=== PATIENT | male | born 1950 | race Caucasian/White ===

== ENCOUNTER → 2019-09-10 | Outpatient (CLI) | payer MEDICARE ==
--- NOTE | 2019-09-10 16:42 | XR ---
Cervical spine HISTORY: Neck pain 5 views of the cervical spine There is anterolisthesis grade 1 C4-5. Multilevel spondylosis is present. Loss of disc height present especially at C5-6, C6-7 and C7-T1. Cervical vertebral bodies show preserved height. There is multil evel facet arthropathy. Apical scarring calcifications present within the distribution of the carotid arteries. C3-4, C5-6 and C6-C7, C7-T1 foraminal encroachment on the left, foraminal encroachment on the right present at C4-5, C6-7. There is a spinal curvature. IMPRESSION: Degenerative disc disease and facet arthropathy. Additional findings above.
== END | disposition home or self-care (01) ==
LOC: RADXRMAIN 14:03
PROVIDERS: ATTEND Internal Medicine
DX: M50.30 Other cervical disc degeneration, unspecified cervical region (principal); M43.12 Spondylolisthesis, cervical region; M47.812 Spondylosis without myelopathy or radiculopathy, cervical region; M46.92 Unspecified inflammatory spondylopathy, cervical region
CPT/HCPCS: 72050

== ENCOUNTER → 2021-04-08 | Outpatient (CLI) | payer MEDICARE ==
--- NOTE | 2021-04-08 14:00 | NM ---
EXAMINATION TYPE: NM stress cardiolite complete DATE OF EXAM: 04/08/2021 COMPARISON: NONE HISTORY: I20.8 stable angina pectoris TECHNIQUE: After the intravenous administration of 9.6 mCi Tc 99m Sestamibi - Rest images obtained 4 5 minutes post injection. The patient exercised using a JAYSON protocol and 1 minute prior to peak e xercise was injected with 25.2 mCi Tc 99m Sestamibi - Stress images obtained 10 minutes post injectio n. FINDINGS: Targeted heart rate was achieved during performance of the study. Review of stress and rest SPECT kacie ges demonstrates some mild decreased along the anteroseptal left ventricle on stress as compared to r est images more towards the base of the heart. Gated analysis shows normal wall motion with an estim ated left ventricular ejection fraction of 71 %. IMPRESSION: Findings suggest stress-induced left ventricular myocardial ischemia, consider echocardiographic angel elation for elevated ejection fraction A Yellow level critical message alert has been initiated for Duke Soto MD via the [employer] Critical Results System on 04/08/2021 1:57 PM. This message alert has been sent to Duke Soto MD via the preferences provided by the clinician for the receipt of Radiology Critical Findings. Message ID [id number].
--- NOTE | 2021-04-08 14:13 | EST ---
EXERCISE STRESS AGE: 70 SEX: M HT: 6' WT: 180 lbs PROTOCOL: Cardiolite STAGE: 4 DURATION OF EXERCISE: 10:00 HEART RATE REST: 58 BLOOD PRESSURE REST: 120/70 MAXIMUM HEART RATE ACHIEVED: 142 MAXIMUM BLOOD PRESSURE: 181/65 85% MPHR: 126 100% MPHR: 148 METS: 11.7 INDICATIONS: Abnormal ECG CLINICAL INFORMATION: Baseline EKG revealed a sinus mechanism with minor nonspecific ST-T abnormality. Patient walked on standard Sean protocol for 10 minutes, achieved a maximal heart rate of 142 beats per minute, which is more than 85% of predicted maximum. He developed fatigue and shortness of breath but did not have angina or arrhythmia. EKG did not reveal any ST-segment changes to indicate ischemia. There was a lot of baseline artifact but no clear-cut evidence of ischemia. Good exercise capacity with a negative stress test by EKG criteria was noted. No anginal symptoms were reported and no significant arrhythmia was noted. The nuclear scan results, which are more pertinent, will be reported by the radiologist. SUNITA / NIKN: [id number] /
== END | disposition home or self-care (01) ==
LOC: RADNMMAIN 08:07
PROVIDERS: ATTEND Internal Medicine
DX: R94.39 Abnormal result of other cardiovascular function study (principal)
CPT/HCPCS: 93017; 78452; A9500

== ENCOUNTER → 2021-04-28 | Outpatient (CLI) | payer MEDICARE ==
--- NOTE | 2021-04-29 12:01 | ECHOF ---
Referral Reason:R94.38 Posivite stress test MEASUREMENTS -------- HEIGHT: 182.9 cm WEIGHT: 83.0 kg BP: 134/64 RVIDd: 2.9 cm (< 3.3) IVSd: 1.2 cm (0.6 - 1.1) LVIDd: 3.8 cm (3.9 - 5.3) LVPWd: 1.1 cm (0.6 - 1.1) IVSs: 1.4 cm LVIDs: 2.4 cm LVPWs: 1.4 cm LA Diam: 4.2 cm (2.7 - 3.8) LAESV Index (A-L): 32.08 ml/m Ao Diam: 3.5 cm (2.0 - 3.7) AV Cusp: 2.6 cm (1.5 - 2.6) MV EXCURSION: 19.848 mm (> 18.000) MV EF SLOPE: 107 mm/s (70 - 150) EPSS: 0.7 cm MV E Jean Paul: 0.71 m/s MV DecT: 355 ms MV A Jean Paul: 0.80 m/s MV E/A Ratio: 0.88 RAP: 5.00 mmHg RVSP: 23.73 mmHg FINDINGS -------- Sinus rhythm. This was a technically good study. The left ventricular size is normal. There is borderline concentric left ventricular hypertrophy. Overall left ventricular systolic function is normal with, an EF between 60 - 65 %. The right ventricle is normal in size. LA is midly dilated 29-33ml/m2. The right atrium is normal in size. Interatrial and interventricular septum intact. The aortic valve is trileaflet, and appears structurally normal. No aortic stenosis or regurgitation. The mitral valve is normal. Mild tricuspid regurgitation present. Right ventricular systolic pressure is normal at < 35 mmHg. There is no pulmonic regurgitation present. The aortic root size is normal. Normal inferior vena cava with normal inspiratory collapse consistent with estimated right atrial pre ssure of 5 mmHg. There is no pericardial effusion. CONCLUSIONS -------- 1. The left ventricular size is normal. 2. There is borderline concentric left ventricular hypertrophy. 3. Overall left ventricular systolic function is normal with, an EF between 60 - 65 %. 4. LA is midly dilated 29-33ml/m2. 5. The aortic valve is trileaflet, and appears structurally normal. No aortic stenosis or regurgitati on. 6. Mild tricuspid regurgitation present. 7. There is no pericardial effusion. [employer] AIDE: Tegan Fletcher RDCS
== END | disposition home or self-care (01) ==
LOC: RADECHMAIN 15:24
PROVIDERS: ATTEND Internal Medicine
DX: I07.1 Rheumatic tricuspid insufficiency (principal)
CPT/HCPCS: 93306

== ENCOUNTER → 2024-08-12 | Outpatient (CLI) | payer MEDICARE ==
--- NOTE | 2024-08-12 23:54 | US ---
EXAMINATION TYPE: US carotid duplex BILAT DATE OF EXAM: 08/12/2024 COMPARISON: NONE CLINICAL INDICATION: Male, 73 years old with history of I65.23 CAROTID STENOSIS; stenosis Additional History: .... TECHNIQUE: Grayscale, color Doppler and spectral Doppler evaluation of the bilateral carotid systems and vertebral arteries. Indirect Doppler criteria was utilized. FINDINGS: EXAM MEASUREMENTS: RIGHT: Peak Systolic Velocity (PSV) cm/sec ----- Right CCA: 92.4 ----- Right ICA: 85.2 ----- Right ECA: 75 ICA/CCA ratio: 0.9 RIGHT: End Diastole cm/sec ----- Right CCA: 22.7 ----- Right ICA: 21.2 ----- Right ECA: 12.5 LEFT: Peak Systolic Velocity (PSV) cm/sec ----- Left CCA: 76.4 ----- Left ICA: 80.8 ----- Left ECA: 93.9 ICA/CCA ratio: 1.1 LEFT: End Diastole cm/sec ----- Left CCA: 21.2 ----- Left ICA: 27 ----- Left ECA: 14 VERTEBRALS (direction of flow): Right Vertebral: Antegrade Left Vertebral: Antegrade Rhythm: Normal ISOTOPE TECHNOLOGIST NOTES: No significant stenosis seen Color Doppler imaging shows patency with blood flow throughout the carotid artery. Spectral waveforms are within normal limits. IMPRESSION: 1. Scattered atheromatous plaques with some mild intimal thickening present bilaterally. No significa nt flow-limiting stenosis based on velocities. Criteria for Assigning % of Stenosis / Diameter reduction (Estimation based on the indirect measurements of the internal carotid artery velocities (ICA PSV). 1. Normal (no stenosis)=ICA PSV < 125 cm/s: ratio < 2.0: ICA EDV<40 cm/s. 2. Less than 50% stenosis=ICA PSV < 125 cm/s: ratio < 2.0: ICA EDV<40 cm/s. 3. 50 to 69% stenosis=ICA PSV of 125 to 230 cm/s: ration 2.0 ? 4.0: ICA EDV 40-100 cm/s. 4. Greater than 70% stenosis to near occlusion= ICA PSV > 230 cm/s: ratio > 4.0: ICA EDV > 100 cm/s. 5. Near occlusion= ICA PSV velocities may be low or undetectable: variable ratio and ICA EDV. 6. Total occlusion=unable to detect flow. [facility], , 08/12/2024 11:51 PM
--- NOTE | 2024-08-13 07:58 | CA ---
Transthoracic Echo Report Name: Feliciano Neumann Age: 73 Gender: M : 1950 Exam Date: 08/12/2024 13:29 Exam Location: [facility] Ht (in): 71 Wt (lb): 185 Ordering Physician: Duke Soto MD Attending/Referring Phys: Duke Soto MD Call Specialist Radha Bagley RDCS Procedure CPT: Indications: I25.10 ATHSCL HEART DISEASE OF [place] CORONARY ART Cardiac Hx: Technical Quality: Good Contrast 1: Total Dose (mL): Contrast 2: Total Dose (mL): MEASUREMENTS (Male / Female) Normal Values 2D ECHO LV Diastolic Diameter PLAX 5.5 cm 4.2 - 5.9 / 3.9 - 5.3 cm LV Systolic Diameter PLAX 3.4 cm IVS Diastolic Thickness 0.8 cm 0.6 - 1.0 / 0.6 - 0.9 cm LVPW Diastolic Thickness 0.8 cm 0.6 - 1.0 / 0.6 - 0.9 cm LV Relative Wall Thickness 0.3 LVOT Diameter 2.5 cm Aortic Root Diameter 3.4 cm LV Diastolic Volume MOD BP 139.5 cm??? 67 - 155 / 56 - 104 cm??? LV Systolic Volume MOD BP 63.0 cm??? 22 - 58 / 19 - 49 cm??? LV Ejection Fraction MOD BP 54.8 % >= 55 % LV Cardiac Index MOD BP 2152.2 cm???/min???m??? LV Diastolic Volume MOD 4C 132.0 cm??? LV Systolic Volume MOD 4C 61.1 cm??? LV Ejection Fraction MOD 4C 53.7 % LV Cardiac Index MOD 4C 1996.3 cm???/min???m??? LV Diastolic Length 4C 8.8 cm LV Systolic Length 4C 7.3 cm LV Diastolic Volume MOD 2C 144.7 cm??? LV Systolic Volume MOD 2C 65.4 cm??? LV Ejection Fraction MOD 2C 54.8 % LV Cardiac Index MOD 2C 2233.3 cm???/min???m??? LV Diastolic Length 2C 9.0 cm LV Systolic Length 2C 7.3 cm LA Volume 87.8 cm??? 18 - 58 / 22 - 52 cm??? LA Volume Index 42.6 cm???/m??? 16 - 28 cm???/m??? Ascending Aorta Diameter 3.5 cm DOPPLER AV Peak Velocity 125.5 cm/s AV Peak Gradient 6.3 mmHg AV Mean Velocity 94.1 cm/s AV Mean Gradient 3.8 mmHg AV Velocity Time Integral 29.3 cm LVOT Peak Velocity 102.5 cm/s LVOT Peak Gradient 4.2 mmHg LVOT Velocity Time Integral 21.7 cm LVOT Stroke Volume 103.1 cm??? LVOT Stroke Volume Index 50.5 ml/m??? LVOT Cardiac Index 2901.9 cm???/min???m??? AV Area Cont Eq vti 3.5 cm??? AV Area Cont Eq pk 3.9 cm??? MV Area PHT 4.5 cm??? Mitral E Point Velocity 62.5 cm/s Mitral A Point Velocity 66.4 cm/s Mitral E to A Ratio 0.9 MV Deceleration Time 168.9 ms PV Peak Velocity 108.5 cm/s PV Peak Gradient 4.7 mmHg FINDINGS Left Ventricle Left ventricular ejection fraction is estimated at 55 %. Mildly increased left ventricular systolic volume. Left ventricular wall thickness normal. No obvious regional wall motion abnormalities. Right Ventricle Normal right ventricular size and function. Unable to estimate the right ventricular systolic pressure. Right Atrium Normal right atrial size. Left Atrium Severely increased left atrial volume. Mildly increased left atrial area. Mitral Valve Structurally normal mitral valve. No evidence for mitral valve prolapse. No mitral stenosis. Trace mitral regurgitation. Aortic Valve Trileaflet aortic valve. No aortic valve stenosis or regurgitation. Tricuspid Valve Structurally normal tricuspid valve. No tricuspid stenosis. Trace tricuspid regurgitation. Pulmonic Valve Structurally normal pulmonic valve. No pulmonic stenosis. Trace pulmonic regurgitation. Pericardium No pericardial effusion. Aorta Normal size aortic root and proximal ascending aorta. CONCLUSIONS Normal biventricular systolic function No significant valvular abnormalities noted No pericardial effusion Previewed by: Dr. Shan Carranza MD (Electronically Signed) Final Date: 13 August 2024 07:57
== END | disposition home or self-care (01) ==
LOC: RADECHMAIN 13:23
PROVIDERS: ATTEND Internal Medicine
DX: I25.10 Atherosclerotic heart disease of native coronary artery without angina pectoris (principal); I65.23 Occlusion and stenosis of bilateral carotid arteries
CPT/HCPCS: 93306; 93880

== ENCOUNTER 2024-12-31 08:34 | Day surgery (SDC) | payer MEDICARE ==
[2024-12-27 09:45] VITALS: BMI 24.8
[~2024-12-31 08:34] MED LIST: LIDOCAINE 1% (10MG/ML) FOR IV START INTRADERMA PRN; ONDANSETRON 4 MG/2 ML VIAL IVP PRN
[2024-12-31] MEDS: IV FLUID CONTINUATION 1,000 ML IV ONE (09:08)
[2024-12-31] MEDS: LACTATED RINGERS 1,000 ML IV SCH (09:13)
[2024-12-31 09:15] VITALS: TEMP 97.6
[2024-12-31] MEDS ORDERED: PROPOFOL 10 MG/ML 20 ML VIAL IV ONE (09:36)
[2024-12-31] MEDS ORDERED: LIDOCAINE 1% INJ 10MG/ML (20 ML MDV) ONE (09:36)
--- NOTE | 2024-12-31 09:53 | P.PCN ---
Date of Procedure: 12/31/24 Procedure(s) Performed: BRIEF HISTORY: Patient is a 74-year-old pleasant white male scheduled for an elective colonoscopy as a part of screening for colon cancer. His last colonoscopy was 10 years ago. PROCEDURE PERFORMED: Colonoscopy. PREOPERATIVE DIAGNOSIS: Screening for colon cancer. IV sedation per Anesthesia. PROCEDURE: After informed consent was obtained, the patient, was brought into the endoscopy unit. IV sedation was administered by Anesthesia under continuous monitoring. Digital rectal examination was normal. Initially the Olympus CF-160 flexible video colonoscope was then inserted in the rectum, gradually advanced into the cecum without any difficulty. Careful examination was performed as the scope was gradually being withdrawn. Ileocecal valve and the appendiceal orifice were visualized and appeared normal. Prep was excellent. Mucosa of the cecum, ascending colon, transverse colon, descending colon, sigmoid colon, and rectum appeared normal. Retroflexion was performed in the rectum and no lesions were seen. The patient tolerated the procedure well. IMPRESSION: Normal-appearing colon from rectum to cecum with no evidence of colorectal neoplasia. RECOMMENDATIONS: Findings of this examination were discussed with the patient as well as his family. He was advised to be on high-fiber diet..
[2024-12-31 10:01] VITALS: RESP 14
[2024-12-31 10:02] VITALS: BP 127/75
[2024-12-31 10:24] VITALS: PULSE 70
== END 2024-12-31 10:57 | disposition home or self-care (01) ==
LOC: ORWHC2ENDO 08:34
PROVIDERS: ATTEND Internal Medicine Gastroenterology
DX: Z12.11 Encounter for screening for malignant neoplasm of colon (principal); I10 Essential (primary) hypertension; E78.5 Hyperlipidemia, unspecified; Z79.899 Other long term (current) drug therapy; Z98.890 Other specified postprocedural states; Z79.82 Long term (current) use of aspirin
CPT/HCPCS: J2003; J2704; G0121